=== PATIENT | male | born 1960 | race Caucasian/White ===

== ENCOUNTER 2020-11-29 22:09 | Emergency (ER) | payer OTHER, SELFPAY ==
--- NOTE | ~2020-11-29 | XR_ITS ---
EXAMINATION: XR chest 1V portable DATE: 11/29/2020 22:39 INDICATION: Shortness of breath and cough TECHNIQUE: frontal view of the chest was obtained. COMPARISON: None FINDINGS: Increased lucency, architectural distortion and curvilinear opacities at the bilateral apices suggest francis of bullous emphysema. Diffuse increased interstitial pattern in the bilateral mid and lower lung zones with some peripheral thin linear Marcy B lines consistent with mild pulmonary edema. No pleura l effusion or pneumothorax. Borderline heart size accounting for AP technique. IMPRESSION: 1. Borderline heart size with mild pulmonary edema. 2. Suggestion of biapical bullous emphysema. Reviewed, dictated and finalized at location A.
--- NOTE | 2020-11-29 22:10 | ECG_ITS ---
Measurements Intervals [place] Rate: 110 P: [place]: 0 QRS: 105 QRSD: 89 T: -60 QT: 325 QTc: 440 Interpretive Statements ATRIAL FIBRILLATION WITH RAPID VENTRICULAR RESPONSE RIGHT AXIS DEVIATION DELAYED PRECORDIAL R/S TRANSITION VOLTAGE CRITERIA FOR LVH ST-T WAVE ABNORMALITY IN LATERAL LEADS- CONSIDER ISCHEMIA BASELINE ARTIFACT- I, III ABNORMAL ECG Electronically Signed On 11-30-2020 9:37:33 CDT by David Pederson D.O.
[2020-11-29 22:11] VITALS: BP 140/103; PULSE 123; RESP 20; TEMP 36.5; O2SAT 98
[2020-11-29 22:37] VITALS: PULSE 93; RESP 29; O2SAT 100
[2020-11-29 22:38] VITALS: PULSE 104; PULSE 108; RESP 25; O2SAT 99
[2020-11-29 22:38] LABS: Basophils Percent Auto 0.3 % (0.2-1.2); Eosinophils Absolute Auto 0.6 K/mm3 (0-0.3); Hemoglobin 14.2 g/dL (14.0-18.0); Immature Granulocyte Absolute 0.02 K/mm3 (0.00-0.031); Immature Granulocyte Percent A 0.2 % (0-0.5); Lymphocytes Absolute Auto 3.23 K/mm3 (0.9-3.2); Lymphocytes Percent Auto 32.7 % (18.3-44.2); Mean Corpuscular HGB Conc 32.3 g/dl (32-36); Mean Corpuscular Hemoglobin 25.7 pg (26-34); Mean Corpuscular Volume 79.7 fl (80-100); Mean Platelet Volume 10.6 fl (7.4-10.4); Monocytes Percent Auto 9.8 % (2.6-8.5); Neutrophils Absolute Auto 5.1 K/mm3 (1.3-6.7); Platelet Count Result 326 k/mm3 (150-375); Red Blood Count 5.52 M/mm3 (4.6-6.20); Red Cell Distribution Width 16.2 % (11.5-14.5); White Blood Count 9.9 K/mm3 (4.5-10.0)
[2020-11-29 22:45] VITALS: PULSE 100; RESP 31; O2SAT 97
[2020-11-29 22:50] LABS: Anion Gap 10 mmol/L (8-16); Blood Urea Nitrogen 17 mg/dL (9-20); Calcium 8.6 mg/dL (8.4-10.2); Carbon Dioxide 24 mmol/L (22-30); Chloride 106 mmol/L (98-107); Estimated Glomerular Filt Rate > 60; Glucose 108 mg/dL (65-110); Potassium 4.2 mmol/L (3.4-5.0); Sodium 140 mmol/L (137-145)
[2020-11-29 23:10] LABS: Alveolar/Arterial O2 Gradient 48.4 mmHg; Base Excess ABG -3.5 mEq/l (+/-2.0); Device ROOM AIR; Fractional Inspired Oxygen 21 %; HCO3 ABG 20.5 mEq/l (22.0-26.0); Methemoglobin ABG 0.4 %THb (0-1.5); Oxygen Content ABG 18.2 %vol (16.0-22.0); Oxygen Saturation ABG 91.5 % (95.0-100.0); Oxyhemoglobin 88.3 % THb (90.0-100.0); PO2 ABG 60.6 mmHg (80.0-100.0); PO2 FiO2 Ratio Arterial Blood 2.89 %; Reduced Hemoglobin 9.3 %THb (0-5.0); Site Drawn RIGHT BRACHIAL; Total Hemoglobin 14.7 g/dL (12.0-18.0); pH ABG 7.398 (7.350-7.450)
[2020-11-29 23:17] VITALS: PULSE 109; RESP 33; O2SAT 100
--- NOTE | 2020-11-29 23:20 | ED.SOB ---
HPI - SOB/Dyspnea General Chief Complaint: Shortness of Breath/Dyspnea Stated Complaint: SOB, drowsy Time Seen by Provider: 11/29/20 22:34 History of Present Illness HPI Narrative: Patient is a 60-year-old male who presents ER for reports of shortness of breath. Reports symptoms are worse with laying down at night. Has history of heart failure and had at 1 point more no LifeVest due to V. fib and low ejection fraction. That was over a year ago and he no longer has to wear. Reports compliance with home medications although he does not know what he actually takes. If the member has brought him to the ER due to his reported shortness of breath and the fact that he sleeps for 13 days at a time and seems like energy. Patient is awake alert and oriented x3 reports she is chronically fatigued. He reports he has multiple doctors appointments scheduled for this week and may actually have to have a surgery. Unfortunately he does not know what the doctor appointments are for, where there act, or what surgery he may need to have. Related Data Home Medications Medication Instructions Recorded Confirmed cholecalciferol (vitamin D3) 11/29/20 duloxetine mg PO 11/29/20 furosemide 11/29/20 methimazole 11/29/20 Allergies Allergy/AdvReac Type Severity Reaction Status Date / Time No Known Allergies Allergy Verified 11/29/20 23:22 Review of Systems Review of Systems: All systems reviewed & are unremarkable except as noted in HPI and below Constitutional: Constitutional: Denies chills, Reports fatigue and Denies fever(s) ENT: Denies nasal congestion and Denies sore throat Cardiovascular: Cardiovascular: Denies chest pain, Denies rapid heart rate and Denies radiating jaw, neck or arm pain Respiratory: Respiratory: Denies cough and Reports dyspnea Comments: Orthopnea Gastrointestinal: Gastrointestinal: Denies abdominal pain, Denies diarrhea, Denies nausea and Denies vomiting Musculoskeletal: Musculoskeletal: Denies arthralgias and Denies joint swelling Neurologic: Denies syncope, Denies headache(s), Denies focal weakness and Denies numbness PMF Past Medical History Medical History (Updated 11/30/20 @ 00:42 by Jagdish Johnson MD) Atrial fibrillation CHF (congestive heart failure) Hyperthyroidism Family History Family History (Updated 10/31/13 @ 07:13 by DOCTOR UNKNOWN) Sibling Family history of thyroid disease Family history of obesity Mother Family history of chronic obstructive pulmonary disease Social History Social History Smoking status: Heavy tobacco smoker Alcohol intake: current Exam Narrative: GENERAL: Well-appearing, well-nourished, and in no acute distress. HEAD: Normocephalic, atraumatic. EYES: PERRL and EOMI. ENT: Mucous membranes moist. CHEST: Mild tachypnea with rales bilaterally. HEART: Tachycardic with an irregular regular rate and rhythm. Normal peripheral pulses. ABDOMEN: Soft, nontender, nondistended. EXTREMITIES: Normal range of motion. No edema. SKIN: Warm, dry, no rash. NEURO: Alert and oriented x3. PSYCH: Normal mood and affect. Course Course Emergency Course: I have informed the patient and family of testing results and requested that he stay in the hospital for medical optimization of his CHF and his A. fib. Heart rate controlled after IV diltiazem. Has been given some Lasix. I discussed his outlet side med list from [facility] and does not seem that she is taking his Coreg or Lasix nor is he on a blood thinner. Patient is unsure if they have been filled or not as his significant other is one who fills his medications. He does not wish to stay in the hospital despite the risk of respiratory failure and . I have given him multiple opportunities stay in the hospital and he is declined and is chosen to leave AGAINST MEDICAL ADVICE. Vital Signs Vital signs: Vital Signs Temperature 97.7 F 11/29/20 22:11 Pulse Rate 123 H 11/29/20 22:11 Respiratory Rate 20
[2020-11-29 23:31] VITALS: BP 140/110; PULSE 123; RESP 32; O2SAT 96
--- NOTE | 2020-11-29 23:40 | PC.NURSE ---
Pt here c granddaughter, who reports that pt will sleep for 12 days at a time. pt admits to regular use of methamphetamine, up to weekly, and will stay up for 2 days at a time before long periods of sleep. pt lives with daughter, who also uses meth. pt also c/o shortness of breath, but resps appear nonlabored at present on RA. pt also unable to name home meds and cannot recall names from pharmacy list. of note, pt has multiple meds that he has not picked up in at least 2 months - he reports his daughter gets his meds from [facility] and sometimes they don't have them ready and they keep changing it .
[2020-11-30 00:01] LABS: NT Pro B Type Natriuretic Pept 8340 pg/mL (5-100)
[2020-11-30 00:05] LABS: INR 1.4; Prothrombin Time 17.2 Seconds (11.1-14.7)
[2020-11-30 00:06] LABS: Partial Thromboplastin Time 33.9 SECONDS (22.3-36.8)
[2020-11-30 00:20] LABS: Amphetamine Screen Urine Positive (Negative); Barbiturate Screen Urine Negative (Negative); Benzodiazepines Screen Urine Negative (Negative); Cannabinoid Screen Urine Negative (Negative); Cocaine Screen Urine Negative (Negative); Methadone Screen Urine Negative (Negative); Opiate Screen Urine Negative (Negative); Phencyclidine Screen Urine Negative (Negative)
[2020-11-30 00:21] LABS: Add Urine Microscopic? NO; Appearance Urine Clear (Clear); Bilirubin Urine Negative (Negative); Blood Urine Negative (Negative); Color Urine Yellow (Yellow); Glucose Urine UA Negative (Negative); Ketones Urine Negative (Negative); Leukocyte Esterase Ur Negative LEU/UL (Negative); Nitrate Urine Negative (Negative); Protein Urine Negative (Negative); Specific Grav Ur 1.017 (1.001-1.035); Urobilinogen Urine Negative mg/dL (<2.0)
[2020-11-30 00:25] LABS: Thyroid Stimulating Hormone Reflex < 0.015 uIU/mL (0.465-4.68)
--- NOTE | 2020-11-30 01:02 | PC.NURSE ---
ED MD in room talking to pt and granddaughter about meds that pt should be taking but isn't, based on pharmacy refill hx provided. pt becomes upset and requests to leave. verbalized understanding that risks of leaving AMA include , disability and worsening of current health problems. Pt verbalized understanding. This RN also educated pt on dangers of smoking meth and effects on his heart. further reinforcement needed. IV removed. Escorted to wr in [place] by family.
[2020-11-30 01:16] LABS: Free T4 Free Thyroxine Reflex 1.95 ng/dL (0.78-2.19)
[2020-11-30 03:19] LABS: Total Triiodothyronine (T3) 1.83 NG/ML (0.97-1.69)
== END 2020-11-30 01:07 | disposition left against medical advice (07) ==
PROVIDERS: Emergency Provider Emergency Medicine; PCP Physician Assistant
DX: I50.9 Heart failure, unspecified (principal); I48.0 Paroxysmal atrial fibrillation; E05.90 Thyrotoxicosis, unspecified without thyrotoxic crisis or storm; Z72.0 Tobacco use
CPT/HCPCS: 36415; 36600; 71045; 80048; 80307; 81003; 82375; 82805; 83050; 83880; 84439; 84443; 84480; 85025; 85610; 85730; 93005; 99284

== ENCOUNTER 2021-08-05 18:52 | Emergency (ER) | payer OTHER, SELFPAY ==
[2021-08-05] VITALS (27 sets, daily range): BP systolic 120–146; BP diastolic 81–114; PULSE 73–106; RESP 0–33; TEMP 36.5; O2SAT 91–100
--- NOTE | ~2021-08-05 | XR_ITS ---
EXAMINATION: XR chest 2V DATE: 08/05/2021 21:09 INDICATION: Shortness of breath TECHNIQUE: AP and lateral views of the chest are obtained. COMPARISON: 11/29/2020 FINDINGS: The lungs are free of acute opacities. There are small pleural effusions. Cardiomegaly is n oted. There is no pneumothorax. There is mild thoracic spondylosis. IMPRESSION: 1. Small pleural effusions. Reviewed, dictated and finalized at location F. IMPRESSION: 1. Small pleural effusions.
--- NOTE | ~2021-08-05 | CT_ITS ---
EXAMINATION: CT abdomen pelvis wo con DATE: 08/05/2021 19:45 INDICATION: Right upper quadrant pain TECHNIQUE: Computed tomography (CT) of the abdomen and pelvis was performed without intravenous contr ast. The dose-length product (DLP) was 222.35 mGy-cm. Automated exposure control and iterative recons truction technique were employed. COMPARISON: None FINDINGS: Cardiomegaly is noted. There is interlobular septal thickening in the lung bases. There are small pleural effusions. The liver, spleen, pancreas, gallbladder, and adrenal glands are normal. Th e kidneys are unremarkable. There is calcified atherosclerosis of the aorta and many of the other art eries. No pathologically enlarged abdominal or pelvic lymph nodes are identified. There is no free in traperitoneal gas or evidence of bowel obstruction. There is a small volume of pelvic ascites. Coloni c diverticulosis is present without evidence of diverticulitis. There is mild lumbar spondylosis. IMPRESSION: 1. No CT correlate for the patient's symptoms. 2. Small pleural effusions. 3. Cardiomegaly with mild pulmonary edema. Reviewed, dictated and finalized at location F.
[2021-08-05 19:25] LABS: Basophils Percent Auto 0.5 % (0.2-1.2); Eosinophils Absolute Auto 0.3 K/mm3 (0-0.3); Eosinophils Percent Auto 2.9 % (0-4.4); Hematocrit 45.5 % (42.0-52.0); Hemoglobin 14.3 g/dL (14.0-18.0); Immature Granulocyte Absolute 0.02 K/mm3 (0.00-0.031); Immature Granulocyte Percent A 0.2 % (0-0.5); Lymphocytes Absolute Auto 2.64 K/mm3 (0.9-3.2); Lymphocytes Percent Auto 29.8 % (18.3-44.2); Mean Corpuscular HGB Conc 31.4 g/dl (32-36); Mean Corpuscular Hemoglobin 25.9 pg (26-34); Mean Corpuscular Volume 82.3 fl (80-100); Mean Platelet Volume 11.8 fl (7.4-10.4); Monocytes Absolute Auto 0.7 K/mm3 (0.1-0.6); Monocytes Percent Auto 7.3 % (2.6-8.5); Neutrophils Absolute Auto 5.2 K/mm3 (1.3-6.7); Neutrophils Percent Auto 59.3 % (45.5-73.1); Platelet Count Result 301 k/mm3 (150-375); Red Blood Count 5.53 M/mm3 (4.6-6.20); Red Cell Distribution Width 15.6 % (11.5-14.5); White Blood Count 8.9 K/mm3 (4.5-10.0)
[2021-08-05] MEDS: MORPHINE SULFATE (*CRX) 4 MG/ML INJ IV PUSH (19:25)
[2021-08-05 19:34] LABS: Alanine Aminotransferase 14 U/L (6-50); Albumin Level 3.6 g/dL (3.5-5.1); Alkaline Phosphatase 120 U/L (38-126); Anion Gap 6 mmol/L (8-16); Aspartate Amino Transferase 23 U/L (17-59); Blood Urea Nitrogen 15 mg/dL (9-20); Calcium 8.6 mg/dL (8.4-10.2); Carbon Dioxide 26 mmol/L (22-30); Chloride 104 mmol/L (98-107); Estimated CRCL calculation 54 ml/min; Estimated Glomerular Filt Rate > 60; Glucose 110 mg/dL (65-110); Lipase 29 U/L (23-300); Potassium 3.7 mmol/L (3.4-5.0); Sodium 136 mmol/L (137-145)
--- NOTE | 2021-08-05 20:23 | ED.GENADULT ---
HPI - General Adult General Chief complaint: Abdominal Pain Stated complaint: ABD PAIN Time Seen by Provider: 08/05/21 19:08 History of Present Illness HPI narrative: Patient is a 61-year-old male who presents ER with right-sided flank pain and abdominal pain. Sudden onset prior to arrival. Get some nausea makes him feel like he needs to use the restroom. He has had no urinary frequency urgency or dysuria. No diarrhea. Denies fevers or chills or sweats. No chest pain or chest pressure. He reports he had a little bit of dyspnea last night but has no dyspnea today or at this time. No runny nose or sore throat or productive cough. He is found no aggravating or alleviating factors for his discomfort. It was not associated with eating. Related Data Home Medications Medication Instructions Recorded Confirmed carvedilol 12.5 mg tablet 12.5 mg PO BID 08/05/21 08/05/21 donepezil 10 mg tablet 10 mg PO HS 08/05/21 08/05/21 furosemide 40 mg tablet 40 mg PO DAILY 08/05/21 08/05/21 losartan 50 mg tablet 50 mg PO DAILY 08/05/21 08/05/21 methimazole 5 mg tablet 5 mg PO BID 08/05/21 08/05/21 mirtazapine 15 mg tablet 15 mg PO HS 08/05/21 08/05/21 rivaroxaban 20 mg tablet (Xarelto) 20 mg PO DAILY 08/05/21 08/05/21 Allergies Allergy/AdvReac Type Severity Reaction Status Date / Time No Known Allergies Allergy Verified 11/29/20 23:22 Review of Systems Review of Systems: All systems reviewed & are unremarkable except as noted in HPI and below Constitutional: Constitutional: Denies chills, Denies fatigue and Denies fever(s) ENT: Denies nasal congestion and Denies sore throat Cardiovascular: Cardiovascular: Denies chest pain, Denies rapid heart rate and Denies radiating jaw, neck or arm pain Respiratory: Respiratory: Denies chest congestion, Denies cough and Reports dyspnea Gastrointestinal: Gastrointestinal: Reports abdominal pain, Denies bloating, Denies constipation, Reports nausea and Denies vomiting Genitourinary: Genitourinary: Denies hematuria, Denies dysuria and Denies urinary frequency [facility] Past Medical History Medical History (Updated 08/05/21 @ 22:16 by Jagdish Johnson MD) Atrial fibrillation CHF (congestive heart failure) Hyperthyroidism Surgical History Surgical History (Updated 08/05/21 @ 20:26 by Jagdish Johnson MD) No pertinent past surgical history Family History Family History (Updated 10/31/13 @ 07:13 by DOCTOR UNKNOWN) Sibling Family history of thyroid disease Family history of obesity Mother Family history of chronic obstructive pulmonary disease Social History Social History Smoking status: Heavy tobacco smoker Alcohol intake: current Exam Narrative: GENERAL: Uncomfortable-appearing, well-nourished, and in no acute distress. HEAD: Normocephalic, atraumatic. EYES: PERRL and EOMI. ENT: Mucous membranes moist. CHEST: Clear to auscultation. No respiratory distress. HEART: Regular rate and rhythm. Normal peripheral pulses. ABDOMEN: Soft, mild RUQ tenderness, nondistended. BACK: Tenderness right low back paraspinal region around L3-L4. No CVA tenderness. No midline tenderness of the thoracic or lumbar spine. No palpable spasm. EXTREMITIES: Normal range of motion. No edema. SKIN: Warm, dry, no rash. NEURO: Alert and oriented x3. PSYCH: Normal mood and affect. Course Course Emergency Course: Patient resting comfortably. Informed results. No abnormal lung sounds no pulmonary edema on chest x-ray. BNP elevated. Patient does have some mild dementia though he is oriented. He reports his daughter has been sick and has not been filling his medication. Patient has his most recent bottle of Lasix with him. It was filled on 07/22/2021, it still has all 30 tablets in it. Additionally he has a bottle from 06/22/2021 that still has 10 tablets in it. Patient was given 1 dose of medication here. Discharge home. Recommend follow-up with PCP. Daughter contacted by nurse and i
[2021-08-05 20:32] LABS: NT Pro B Type Natriuretic Pept 14400 pg/mL (5-100)
[2021-08-05 21:05] LABS: Appearance Urine Clear (Clear); Bilirubin Urine Negative (Negative); Color Urine Yellow (Yellow); Glucose Urine UA Trace mg/dL (Negative); Ketones Urine Negative (Negative); Leukocyte Esterase Ur Negative LEU/UL (Negative); Nitrate Urine Negative (Negative); Protein Urine Negative (Negative); Specific Grav Ur 1.015 (1.001-1.035); Urobilinogen Urine 0.2 mg/dL (<2.0)
--- NOTE | 2021-08-05 21:06 | PC.NURSE ---
, Munira Daughter updated. Wants a call back when more information is available.
[2021-08-05 21:09] LABS: Bacteria Urine Trace /hpf; Mucus Urine Rare /lpf; RBC Urine 0-2 /hpf (0-2); Squamous Epithelial Cell Urine Rare /hpf (Few); WBC Urine 0-3 /hpf
[2021-08-05 21:10] LABS: Add Urine Microscopic? YES; Blood Urine Trace-Intact (Negative)
--- NOTE | 2021-08-05 22:11 | PC.NURSE ---
PT took home dose of furosemide 40 mg po at order of CARYL Johnson.
== END 2021-08-05 22:57 | disposition home or self-care (01) ==
PROVIDERS: Emergency Medicine; Emergency Provider Emergency Medicine; PCP Physician Assistant
DX: I50.9 Heart failure, unspecified (principal); M54.50 Low back pain, unspecified; I48.91 Unspecified atrial fibrillation; E05.90 Thyrotoxicosis, unspecified without thyrotoxic crisis or storm; Z79.01 Long term (current) use of anticoagulants; F17.200 Nicotine dependence, unspecified, uncomplicated; I51.7 Cardiomegaly
CPT/HCPCS: 36415; 71046; 74176; 80053; 81001; 83690; 83880; 85025; 96374; 99284; J2270

== ENCOUNTER 2022-05-25 01:01 | Emergency (ER) | payer MEDICARE, MEDICAID, SELFPAY ==
[2022-05-25] VITALS (32 sets, daily range): BP systolic 132–178; BP diastolic 71–122; PULSE 81–107; RESP 12–22; TEMP 35.6; O2SAT 84–100
--- NOTE | ~2022-05-25 | CT_ITS ---
Clinical Indication: Shortness of breath, abdominal pain CT Scan of the Chest, Abdomen, and Pelvis with Contrast: Technique: Contiguous sections were acquired throughout the chest, abdomen, and pelvis after intraven ous administration of 100 cc of Omnipaque 350. Dose reduction technique was used on this scan by uti lizing automated exposure control and iterative reconstruction technique. The dose-length product (DL P) was 716.36 mGy-cm. COMPARISON: 08/05/2021 Findings: There is no evidence of any significant mediastinal, hilar or axillary lymphadenopathy. No aortic ane urysm or dissection. No large central pulmonary embolus seen. Coronary artery calcifications are pres ent. There is no evidence of pleural or pericardial effusion. There is a 5 mm pulmonary nodule along the right major fissure (axial image 78). There is paraseptal emphysematous change at the lung apices/upper lobes. The liver, spleen, gallbladder, and adrenal glands are within normal limits. There is an 8 mm probabl e cystic lesion at the uncinate process of the pancreas. There are probable scattered areas of renal cortical scarring bilaterally, right worse than left. There are atherosclerotic calcifications of the aorta. Celiac axis, SMA, and BRANDON are patent. There is atherosclerotic change of the mid SMA, with ap proximately 50% stenosis. No lymphadenopathy. There is couple mildly distended small bowel loops in the left upper quadrant, nonspecific. No bowel wall thickening evident. No abscess or free air. Urinary bladder is unremarkable. Prostate gland minimally enlarged. Impression: No evidence for acute mesenteric ischemia. Atherosclerotic change of the mid SMA with approximately 5 0% stenosis. Several mildly distended small bowel loops in left upper quadrant, nonspecific. Correlate for focal i leus. Mild emphysematous change of the upper lobes. 8 mm probable cystic lesion at the uncinate process of the pancreas. 5 mm pulmonary nodule along right major fissure. According to Fleischner Society criteria, for a low- risk patient, no further follow-up required. For a high-risk patient, consider 12 month follow-up CT. Reviewed, dictated and finalized at [facility]. Impression: No evidence for acute mesenteric ischemia. Atherosclerotic change of the mid SM A with approximately 50% stenosis. Several mildly distended small bowel loops in left upper quadrant, nonspecific. Correlate for focal ileus. Mild emphysematous change of the upper lobes. 8 mm probable cystic lesion at the uncinate process of the pancreas. 5 mm pulmonary nodule along right major fissure. According to Fleischner Societ y criteria, for a low-risk patient, no further follow-up required. For a high-r isk patient, consider 12 month follow-up CT.
--- NOTE | 2022-05-25 01:10 | ECG_ITS ---
Measurements Intervals [place] Rate: 78 P: [place]: 0 QRS: 79 QRSD: 94 T: 104 QT: 408 QTc: 466 Interpretive Statements ATRIAL FIBRILLATION LEFT VENTRICULAR HYPERTROPHY WITH ST-T CHANGE BORDERLINE T WAVE ABNORMALITY- HIGH LATERAL LEADS ABNORMAL ECG COMPARED TO ECG 11/29/2020 22:16:07 HEART RATE HAS DECREASED Electronically Signed On 05-25-2022 6:41:16 CDT by David Pederson D.O.
--- NOTE | 2022-05-25 01:17 | ED.ABDPAIN ---
HPI - Abdominal Pain General Chief Complaint: Abdominal Pain <ILANA Mckeon Last Filed: 05/25/22 03:46> Stated Complaint: ABD PAIN AND BILATERAL ANKLE PAIN <ILANA Mckeon Last Filed: 05/25/22 03:46> Time Seen by Provider: 05/25/22 01:10 <ILANA Mckeon Last Filed: 05/25/22 03:46> Source: patient <ILANA Mckeon Last Filed: 05/25/22 03:46> Mode of arrival: EMS <ILANA Mckeon Last Filed: 05/25/22 03:46> History of Present Illness HPI narrative: This is a 62-year-old male with PMH of A-fib, CHF, hyperthyroidism who presents to the ED via EMS with chief complaint of abdominal pain onset about 30 minutes prior to arrival. Patient states that the pain started just after he ate. He rates it a 10 out of 10. Patient reports pain is in the epigastrium and does not radiate anywhere else. States he has had pain like this in the past but it was around 30 years ago. He does endorse some shortness of breath. Denies cough. Denies fevers, chills, chest pain, nausea, vomiting, diarrhea. Per EMS he received 60 mcg of fentanyl. <ILANA Mckeon Last Filed: 05/25/22 03:46> Related Data Home Medications: Home Medications Medication Instructions Recorded Confirmed carvedilol 12.5 mg tablet 12.5 mg PO BID 08/05/21 08/05/21 donepezil 10 mg tablet 10 mg PO HS 08/05/21 08/05/21 furosemide 40 mg tablet 40 mg PO DAILY 08/05/21 08/05/21 losartan 50 mg tablet 50 mg PO DAILY 08/05/21 08/05/21 methimazole 5 mg tablet 5 mg PO BID 08/05/21 08/05/21 mirtazapine 15 mg tablet 15 mg PO HS 08/05/21 08/05/21 rivaroxaban 20 mg tablet (Xarelto) 20 mg PO DAILY 08/05/21 08/05/21 <ILANA Mckeon Last Filed: 05/25/22 03:46> Allergies/Adverse Reactions: Allergies Allergy/AdvReac Type Severity Reaction Status Date / Time No Known Allergies Allergy Verified 11/29/20 23:22 <Saroj Mc PA-C - Last Filed: 05/25/22 03:46> Review of Systems Review of Systems: CONSTITUTIONAL: Denies fever, chills, or sweats. EYES: Denies visual changes, redness, or discharge. ENT: Denies rhinorrhea, congestion, sore throat, or otalgia. CARDIOVASCULAR: Denies chest pain, palpitations, or edema. RESPIRATORY: Denies cough or dyspnea. GASTROINTESTINAL: Endorses abdominal pain, nausea, vomiting. denies diarrhea. GENITOURINARY: Denies dysuria or hematuria. SKIN: Denies rash or itching. MUSCULOSKELETAL: Denies back pain, joint pain, or myalgia. NEUROLOGIC: Denies headache, numbness, dizziness, or weakness. PSYCHIATRIC: Denies anxiety or depression. <Saroj Mc PA-C - Last Filed: 05/25/22 03:46> PMFSH Past Medical History Medical History: Medical History (Updated 05/25/22 @ 04:54 by Jone Vance MD) Atrial fibrillation CHF (congestive heart failure) Hyperthyroidism <Saroj Mc PA-C - Last Filed: 05/25/22 03:46> Surgical History Surgical History: Surgical History (Updated 08/05/21 @ 20:26 by Jagdish Johnson MD) No pertinent past surgical history <Saroj Mc PA-C - Last Filed: 05/25/22 03:46> Family History Family History: Family History (Updated 10/31/13 @ 07:13 by DOCTOR UNKNOWN) Sibling Family history of thyroid disease Family history of obesity Mother Family history of chronic obstructive pulmonary disease <Saroj Mc PA-C - Last Filed: 05/25/22 03:46> Social History Social History: Social History Smoking status: Heavy tobacco smoker Alcohol intake: current <Saroj Mc PA-C - Last Filed: 05/25/22 03:46> Exam Narrative: GENERAL: Well-appearing, well-nourished, and in no acute distress. HEAD: Normocephalic, atraumatic. EYES: PERRLA and EOMI. ENT: Nares clear, no rhinorrhea or epistaxis. Mucous membranes moist. Oropharynx without tonsillar hypertrophy exudate or other lesions. NECK: Supple. No adenopathy or masses. CHEST: No respiratory distress. Clear to auscultation. No wheezes rales or
[2022-05-25] MEDS: MORPHINE SULFATE (*CRX) 4 MG/ML INJ IV PUSH (01:27)
[2022-05-25] MEDS: ONDANSETRON INJ 4 MG/2 ML VIAL IV PUSH (01:28)
[2022-05-25] MEDS: SODIUM CHLORIDE 0.9% IV 1,000 ML 999 ML IV CONT ×2 (01:29→04:05)
[2022-05-25 01:31] LABS: Basophils Absolute Auto 0.1 K/mm3 (0.0-0.1); Basophils Percent Auto 0.5 % (0.2-1.2); Eosinophils Absolute Auto 0.6 K/mm3 (0-0.3); Eosinophils Percent Auto 5.1 % (0-4.4); Hematocrit 51.1 % (42.0-52.0); Hemoglobin 16.7 g/dL (14.0-18.0); Immature Granulocyte Absolute 0.08 K/mm3 (0.00-0.031); Immature Granulocyte Percent A 0.7 % (0-0.5); Lymphocytes Absolute Auto 4.18 K/mm3 (0.9-3.2); Mean Corpuscular HGB Conc 32.7 g/dl (32-36); Mean Corpuscular Hemoglobin 25.6 pg (26-34); Mean Corpuscular Volume 78.3 fl (80-100); Mean Platelet Volume 10.8 fl (7.4-10.4); Monocytes Absolute Auto 1.2 K/mm3 (0.1-0.6); Monocytes Percent Auto 10.6 % (2.6-8.5); Neutrophils Absolute Auto 5.5 K/mm3 (1.3-6.7); Neutrophils Percent Auto 47.1 % (45.5-73.1); Platelet Count Result 343 k/mm3 (150-375); Red Blood Count 6.53 M/mm3 (4.6-6.20); Red Cell Distribution Width 15.8 % (11.5-14.5); White Blood Count 11.6 K/mm3 (4.5-10.0)
[2022-05-25] MEDS: HYDROmorphone HCL INJ (*CRX) 1 MG/ML SYR 0.5 MG IV PUSH (01:31)
[2022-05-25 01:41] LABS: INR 1.1
[2022-05-25 01:42] LABS: Partial Thromboplastin Time 28.4 SECONDS (22.3-36.8)
[2022-05-25 01:45] LABS: Alanine Aminotransferase 28 U/L (6-50); Albumin Level 4.5 g/dL (3.5-5.1); Alkaline Phosphatase 149 U/L (38-126); Anion Gap 11 mmol/L (8-16); Aspartate Amino Transferase 34 U/L (17-59); Bilirubin,Total 0.8 mg/dL (0.2-1.3); Blood Urea Nitrogen 27 mg/dL (9-20); Calcium 9.3 mg/dL (8.4-10.2); Carbon Dioxide 23 mmol/L (22-30); Chloride 101 mmol/L (98-107); Estimated CRCL calculation 47 ml/min; Estimated Glomerular Filt Rate > 60; Glucose 119 mg/dL (65-110); Lipase 119 U/L (23-300); Potassium 3.5 mmol/L (3.4-5.0); Sodium 135 mmol/L (137-145)
[2022-05-25 01:49] LABS: Lactic Acid Reflex 4.8 mmol/L (0.7-2.0)
[2022-05-25 01:57] LABS: Troponin I < 0.012 ng/mL (0.000-0.034)
[2022-05-25] MEDS: PIPERACILLN/TAZ 3.375GM/NS50ML 3.375 GM/50 ML BAG IVPB (02:53)
[2022-05-25 02:55] LABS: Appearance Urine Clear (Clear); Bilirubin Urine Negative (Negative); Blood Urine Negative (Negative); Color Urine Yellow (Yellow); Glucose Urine UA Negative (Negative); Ketones Urine Negative (Negative); Leukocyte Esterase Ur Negative LEU/UL (Negative); Nitrate Urine Negative (Negative); Protein Urine Negative (Negative); Urobilinogen Urine 0.2 mg/dL (<2.0)
[2022-05-25 03:10] LABS: Specific Grav Ur 1.053 (1.001-1.035)
[2022-05-25 03:13] LABS: Add Urine Microscopic? NO
[2022-05-25 03:37] LABS: NT Pro B Type Natriuretic Pept 2700 pg/mL (19.9-100)
[2022-05-25 04:29] LABS: Reflex Lactic Acid Yes or No Add Lactic
--- NOTE | 2022-05-25 05:03 | PC.NURSE ---
report called to nora phillip; enoch varela
[2022-05-25 05:13] LABS: Lactic Acid 1.8 mmol/L (0.7-2.0)
[2022-05-25 05:26] LABS: Influenza A QL RT-PCR Negative (Negative); Influenza B QL RT-PCR Negative (Negative); SARS-CoV-2 RNA PCR Negative
== END 2022-05-25 05:48 | disposition short-term general hospital (02) ==
PROVIDERS: Preventive Medicine Aerospace Medicine; Emergency Provider Physician Assistant; PCP Physician Assistant
DX: K55.9 Vascular disorder of intestine, unspecified (principal); I50.9 Heart failure, unspecified; R10.9 Unspecified abdominal pain; I48.91 Unspecified atrial fibrillation; Z20.822 Contact with and (suspected) exposure to COVID-19; E05.90 Thyrotoxicosis, unspecified without thyrotoxic crisis or storm
CPT/HCPCS: 36415; 71275; 74174; 80053; 81003; 82248; 83605; 83690; 83880; 84484; 85025; 85610; 85730; 87040; 87636; 93005; 96361; 96365; 96375; 99285; J1170; J2270; J2405; J2543; J7030; Q9967

== ENCOUNTER 2023-07-13 16:28 | Observation (INO) | payer MEDICARE, MEDICAID, SELFPAY ==
--- NOTE | ~2023-07-13 | US_ITS ---
EXAMINATION: US renal BI DATE: 07/14/2023 08:38 INDICATION: Acute kidney injury. TECHNIQUE: Multiple ultrasound grayscale images of the kidneys were obtained. COMPARISON: CT 05/25/2022 FINDINGS: The right kidney measures 9.9 x 5.5 x 4.7 cm. The left kidney measures 10.5 x 5.8 x 5.1 cm. There is cortical thinning of the kidneys. The kidneys demonstrate normal parenchymal echogenicity. There is a 9 mm hypoechoic mass of left kidney correlating with a cyst by CT. There is no hydronephrosis. The b ladder is normal. IMPRESSION: 1. Mild atrophy of the kidneys. No hydronephrosis. Reviewed, dictated and finalized at location A.
--- NOTE | ~2023-07-13 | XR_ITS ---
Portable chest x-ray Comparison: 08/05/2021 Clinical History: Acute renal insufficiency Findings: Lungs are clear, without focal consolidation or pleural effusion. Cardiomediastinal silho uette is stable. Bones and soft tissues are unremarkable. Impression: Clear lungs. Reviewed, dictated and finalized at location . Impression: Clear lungs.
[2023-07-13 16:42] VITALS: BP 100/68; PULSE 77; RESP 18; TEMP 36.2; O2SAT 98
--- NOTE | 2023-07-13 16:51 | PC.NURSE ---
ana lilia [phone] [facility]
--- NOTE | 2023-07-13 17:02 | ED.GENADULT ---
HPI - General Adult General Chief complaint: Nausea/Vomiting/Diarrhea <Vanita Veras, WEIGHBRIDGE OPERATOR - Last Filed: 07/13/23 17:09> Stated complaint: allergic reaction <Vanita Boggs July, WEIGHBRIDGE OPERATOR - Last Filed: 07/13/23 17:09> Time Seen by Provider: 07/13/23 17:02 <Vanita Boggs July, WEIGHBRIDGE OPERATOR - Last Filed: 07/13/23 17:09> Focused HPI: Hsueyin Kemp is a 63 y/o male who presents today with reports of having a belly ache for a week and not much of an appetite. He states he started to have nausea/vomiting that started today. Denies fever/chills Last BM was today and states it was diarrhea/ last normal was yesterday No previous abdominal surgeries No abdominal pain with palpation states it's more of a nausea feeling then ache. GENERAL: Well-appearing, well-nourished, and in no acute distress. HEAD: Normocephalic, atraumatic. CHEST: Clear to auscultation. ?No respiratory distress. HEART: Regular rate and rhythm.? NEURO: ?Alert and oriented x3. Patient screened in triage and initial orders placed.? ?Additional care and disposition to be based upon?diagnostic testing and treatment. <Vanita Boggs July, WEIGHBRIDGE OPERATOR - Last Filed: 07/13/23 17:09> Related Data Home medications: Home Medications Medication Instructions Recorded Confirmed carvedilol 12.5 mg tablet 12.5 mg PO BID 08/05/21 08/05/21 donepezil 10 mg tablet 10 mg PO HS 08/05/21 08/05/21 furosemide 40 mg tablet 40 mg PO DAILY 08/05/21 08/05/21 losartan 50 mg tablet 50 mg PO DAILY 08/05/21 08/05/21 methimazole 5 mg tablet 5 mg PO BID 08/05/21 08/05/21 mirtazapine 15 mg tablet 15 mg PO HS 08/05/21 08/05/21 rivaroxaban 20 mg tablet (Xarelto) 20 mg PO DAILY 08/05/21 08/05/21 <Vanita Veras, WEIGHBRIDGE OPERATOR - Last Filed: 07/13/23 17:09> Allergies/adverse reactions: Allergies Allergy/AdvReac Type Severity Reaction Status Date / Time No Known Allergies Allergy Verified 11/29/20 23:22 <Vanita Boggs July,N - Last Filed: 07/13/23 17:09> Review of Systems Review of Systems: All systems reviewed & are unremarkable except as noted in HPI and below <Ochoa Mills MD - Last Filed: 07/13/23 20:23> [facility] Past Medical History Medical History: Medical History Atrial fibrillation CHF (congestive heart failure) Hyperthyroidism <Vanita Boggs July,N - Last Filed: 07/13/23 17:09> Surgical History Surgical History: Surgical History No pertinent past surgical history <Vanita Boggs July, - Last Filed: 07/13/23 17:09> Family History Family History: Family History Sibling Family history of thyroid disease Family history of obesity Mother Family history of chronic obstructive pulmonary disease <Vanita Boggs July, - Last Filed: 07/13/23 17:09> Social History Social History: Social History Smoking status: Heavy tobacco smoker Alcohol intake: current <Vanita Boggs July, - Last Filed: 07/13/23 17:09> Exam Narrative: Constitutional: Generally well appearing, no acute distress Head: Atraumatic, no deformities. Eyes: Pupils equal, round, and reactive to light. Neck: Supple, no tracheal deviation, no JVD. ENMT: Mucous membranes moist Cardiovascular: S1, S2 auscultated. No murmurs, rubs, or gallops. No S3/S4. Normal Distal pulses. No peripheral edema. Respiratory: Lung sounds equal. No wheezes, rales, or rhonchi. Gastrointestinal: Abdomen was soft and non-tender. Non-distended. No rebound or guarding. Genitourinary: Deferred Musculoskeletal: Normal muscle tone and bulk. No obvious deformities or tenderness over extremities. Skin: No rashes. Neurological: Strength 5/5 in extremities. Cranial nerves I-XII grossly intact. Distal sensation intact. Mental Status: Awake, alert and oriented x3. Follows commands <Ochoa Mills MD - Last File
[2023-07-13 17:28] LABS: Basophils Percent Auto 0.3 % (0.2-1.2); Eosinophils Absolute Auto 0.3 K/mm3 (0-0.3); Eosinophils Percent Auto 2.4 % (0-4.4); Hematocrit 50.3 % (42.0-52.0); Hemoglobin 16.7 g/dL (14.0-18.0); Immature Granulocyte Absolute 0.08 K/mm3 (0.00-0.031); Immature Granulocyte Percent A 0.6 % (0-0.5); Lymphocytes Absolute Auto 2.33 K/mm3 (0.9-3.2); Lymphocytes Percent Auto 16.8 % (18.3-44.2); Mean Corpuscular HGB Conc 33.2 g/dl (32-36); Mean Corpuscular Hemoglobin 27.1 pg (26-34); Mean Corpuscular Volume 81.7 fl (80-100); Mean Platelet Volume 11.6 fl (7.4-10.4); Monocytes Absolute Auto 1.2 K/mm3 (0.1-0.6); Monocytes Percent Auto 8.5 % (2.6-8.5); Neutrophils Absolute Auto 9.9 K/mm3 (1.3-6.7); Neutrophils Percent Auto 71.4 % (45.5-73.1); Platelet Count Result 289 k/mm3 (150-375); Red Blood Count 6.16 M/mm3 (4.6-6.20); Red Cell Distribution Width 15.4 % (11.5-14.5); White Blood Count 13.9 K/mm3 (4.5-10.0)
[2023-07-13] MEDS: ONDANSETRON INJ 4 MG/2 ML VIAL IV PUSH (17:29)
[2023-07-13] MEDS: FAMOTIDINE 20 MG/2 ML VIAL IV PUSH (17:30)
[2023-07-13 17:33] LABS: Lactic Acid Reflex 1.1 mmol/L (0.7-2.0)
[2023-07-13 17:36] LABS: Alanine Aminotransferase 38 U/L (6-50); Albumin Level 4.8 g/dL (3.5-5.1); Alkaline Phosphatase 142 U/L (38-126); Anion Gap 11 mmol/L (4-12); Aspartate Amino Transferase 33 U/L (17-59); Blood Urea Nitrogen 29 mg/dL (9-20); Calcium 9.8 mg/dL (8.4-10.2); Carbon Dioxide 19 mmol/L (22-30); Chloride 103 mmol/L (98-107); Estimated Glomerular Filt Rate 32; Glucose 124 mg/dL (65-110); Lipase 73 U/L (23-300); Potassium 4.5 mmol/L (3.4-5.0); Sodium 133 mmol/L (137-145)
--- NOTE | 2023-07-13 18:56 | PC.NURSE ---
Pt tells me he had a syncopal episode at home which prompted him to tell his daughter to call EMS.
--- NOTE | 2023-07-13 20:18 | PM.IMHP ---
H&P: HPI History of Present Illness Date/Time: 07/13/23 20:18 Chief Complaint: n/v/d Narrative: This is a 63-year-old male with past medical history significant for hypothyroidism, hypertension, atrial fibrillation, congestive heart failure, dementia. patient presents to the emergency room due to nausea, vomiting, diarrhea. denies any hematemesis, coffee-ground emesis, bright red blood per rectum or melena, patient has been his usual state of health prior to this, denies any fevers, rigors, chills. This has been ongoing for the last 3 days or so. In emergency room preliminary workup was significant for a creatinine 2.1. patient has been placed in observation for further evaluation management and treatment. Review of Systems Review of Systems: n/v/d Constitutional: Constitutional: Denies chills, Denies fever(s) and Denies night sweats Eyes: Eyes: Denies change in vision ENT: Denies dysphagia and Denies odynophagia Cardiovascular: Cardiovascular: Denies chest pain, Denies radiating jaw, neck or arm pain and Denies palpitations Respiratory: Respiratory: Denies cough Gastrointestinal: Gastrointestinal: Denies melena, Denies hematochezia, Denies coffee ground emesis, Reports diarrhea, Reports nausea and Reports vomiting Genitourinary: Genitourinary: Denies dysuria Musculoskeletal: Musculoskeletal: Denies myalgias Integumentary/Breasts: Skin/Breast: Denies rash Neurologic: Denies focal weakness and Denies Sensory deficit (Neuro) Psychiatric: Psychiatric: Reports no additional psychiatric complaints and Reports as per HPI Endocrine: Endocrine: Denies cold intolerance, Denies fatigue, Denies flushing, Denies heat intolerance, Denies polyphagia, Denies polydipsia, Denies polyuria and Denies palpitations Hematologic/Lymphatic: Hematologic/Lymphatic: Reports no additional hematologic/lymphatic complaints and Reports as per HPI Allergic/Immunologic: Allergic/Immunologic: Reports no additional allergic/immunologic complaints and Reports as per HPI PMFSH Past Medical History Medical History (Updated 07/14/23 @ 00:37 by Valentino Snider MD) Atrial fibrillation CHF (congestive heart failure) Hyperthyroidism Surgical History Surgical History No pertinent past surgical history Family History Family History Sibling Family history of thyroid disease Family history of obesity Mother Family history of chronic obstructive pulmonary disease Social History Social History Smoking packs per day: 0.5 Smoking cigarettes per day: 10.0 Years smoked: 40 Smoking pack-years: 20.00 Smoking status: Current every day smoker Tobacco type: cigarettes Alcohol intake: never Substance use: never Substance use type: does not use Do You Feel Safe in your Home?: Yes Lack of Transportation: No Lack of Food: Never True Current Housing: I Have Housing Concerned About Future Housing: No Difficulty Paying Gas/Electric Bills: No Difficulty Paying for Meds: No Currently Unemployed: No Education: Decline to Answer Difficulty w/ Childcare or Family Care: No Spiritual care concerns: No Meds Home Medications and Allergies Home Medications Medication Instructions Recorded Confirmed Type carvedilol 12.5 mg tablet 12.5 mg PO BID 08/05/21 07/14/23 History donepezil 10 mg tablet 10 mg PO HS 08/05/21 07/14/23 History furosemide 40 mg tablet 40 mg PO DAILY 08/05/21 07/14/23 History losartan 50 mg tablet 50 mg PO DAILY 08/05/21 07/14/23 History methimazole 5 mg tablet 5 mg PO BID 08/05/21 07/14/23 History mirtazapine 15 mg tablet 15 mg PO HS 08/05/21 07/14/23 History rivaroxaban 20 mg tablet (Xarelto) 20 mg PO DAILY 08/05/21 07/14/23 History Allergies Allergy/AdvReac Type Severity Reaction Status Date / Time sertraline AdvReac
[2023-07-13 20:22] VITALS: BP 125/59; PULSE 88; RESP 20; O2SAT 97
[2023-07-13] MEDS: SODIUM CHLORIDE 0.9% IV 1,000 ML 999 ML IV CONT (20:22)
[2023-07-13 21:03] LABS: Influenza A QL RT-PCR Negative (Negative); Influenza B QL RT-PCR Negative (Negative); RSV RNA, RT-PCR Negative (Negative); SARS-CoV-2 RNA PCR Negative (Negative)
[2023-07-13 21:14] LABS: Appearance Urine Cloudy (Clear); Bacteria Urine None Seen /hpf; Bilirubin Urine 1+ (Negative); Blood Urine Negative (Negative); Color Urine Dark Yellow (Yellow); Glucose Urine UA Negative (Negative); Hyaline Casts Urine Present /lpf; Ketones Urine Trace mg/dL (Negative); Leukocyte Esterase Ur Negative LEU/UL (Negative); Need Manual Microscopic Reviewed; Nitrate Urine Negative (Negative); Non Pathogenic Casts >20; Protein Urine 1+ mg/dL (Negative); RBC Urine 0-2 /hpf (0-2); Specific Grav Ur 1.021 (1.001-1.035); Squamous Epithelial Cell Urine Occasional /hpf (Few); WBC Urine 0-5 /hpf (0-3)
[2023-07-13 21:15] LABS: Add Urine Microscopic? YES
[2023-07-13 21:46] VITALS: BP 122/87; PULSE 74; RESP 18; O2SAT 97
[2023-07-13] MEDS: SODIUM CHLORIDE 0.9% IV 1,000 ML 125 ML IV CONT (21:47)
[2023-07-13 22:23] VITALS: BMI 22.1
[2023-07-13 22:51] VITALS: BP 160/88; PULSE 86; RESP 16; TEMP 36.4; O2SAT 98
[2023-07-13 23:00] VITALS: O2SAT 97
[2023-07-13 23:58] VITALS: BMI 22.1
[2023-07-13 23:58] LABS: Amphetamine Screen Urine Negative (Negative); Barbiturate Screen Urine Negative (Negative); Benzodiazepines Screen Urine Negative (Negative); Cannabinoid Screen Urine Negative (Negative); Cocaine Screen Urine Negative (Negative); Methadone Screen Urine Negative (Negative); Opiate Screen Urine Negative (Negative); Phencyclidine Screen Urine Negative (Negative)
--- NOTE | 2023-07-14 00:13 | ADMGEN ---
This patient, Huseyin Kemp, was admitted to 3 [facility] Surg Room 317-02. Patient/family oriented to hospital policies and general routines including ID bracelet, bed and alarms, visiting hours, pain management, procedures, bathroom and other care routines, personal items, smoking policy, room service/diet, and visiting hours. Information on how to activate the Rapid Response Team has been discussed. Patient/Family are encouraged to report perceived risks to care and to ask questions if they do not understand what they are told or what they should do.
[2023-07-14 05:49] VITALS: BP 128/71; PULSE 77; RESP 18; TEMP 36.4; O2SAT 98
[2023-07-14 06:06] LABS: Basophils Absolute Auto 0.1 K/mm3 (0.0-0.1); Basophils Percent Auto 0.7 % (0.2-1.2); Eosinophils Absolute Auto 0.4 K/mm3 (0-0.3); Eosinophils Percent Auto 4.4 % (0-4.4); Hematocrit 43.4 % (42.0-52.0); Hemoglobin 14.2 g/dL (14.0-18.0); Immature Granulocyte Absolute 0.05 K/mm3 (0.00-0.031); Immature Granulocyte Percent A 0.6 % (0-0.5); Lymphocytes Percent Auto 29.5 % (18.3-44.2); Mean Corpuscular HGB Conc 32.7 g/dl (32-36); Mean Corpuscular Hemoglobin 27.1 pg (26-34); Mean Corpuscular Volume 82.8 fl (80-100); Mean Platelet Volume 11.6 fl (7.4-10.4); Monocytes Absolute Auto 0.8 K/mm3 (0.1-0.6); Monocytes Percent Auto 9.2 % (2.6-8.5); Neutrophils Absolute Auto 4.9 K/mm3 (1.3-6.7); Neutrophils Percent Auto 55.6 % (45.5-73.1); Platelet Count Result 226 k/mm3 (150-375); Red Blood Count 5.24 M/mm3 (4.6-6.20); Red Cell Distribution Width 14.6 % (11.5-14.5); White Blood Count 8.8 K/mm3 (4.5-10.0)
[2023-07-14 06:20] LABS: Anion Gap 6 mmol/L (4-12); Blood Urea Nitrogen 22 mg/dL (9-20); Calcium 8.8 mg/dL (8.4-10.2); Carbon Dioxide 20 mmol/L (22-30); Chloride 110 mmol/L (98-107); Estimated CRCL calculation 44 ml/min; Estimated Glomerular Filt Rate 51; Glucose 84 mg/dL (65-110); Potassium 4.7 mmol/L (3.4-5.0); Sodium 136 mmol/L (137-145)
[2023-07-14] MEDS: SODIUM CHLORIDE 0.9% IV 1,000 ML 125 ML IV CONT (06:24)
--- NOTE | 2023-07-14 07:43 | PC.NURSE ---
Patient off of unit to US
[2023-07-14 14:00] VITALS: BP 100/59; PULSE 58; RESP 16; TEMP 36.3; O2SAT 98
--- NOTE | 2023-07-14 14:13 | PM.IMPN ---
Progress Note: A&P Assessment and Plan (1) Nausea vomiting and diarrhea: Code(s): R11.2 - Nausea with vomiting, unspecified; R19.7 - Diarrhea, unspecified Status: Acute Assessment and Plan: Patient is feeling much better now. Plan is to continue with IV hydration. Possible discharge in the morning. (2) JOSÉ ANTONIO (acute kidney injury): Code(s): N17.9 - Acute kidney failure, unspecified Status: Acute Assessment and Plan: likely pre renal azotemia receiving IV fluids renal ultrasound showed no hydronephrosis daily intake and output (3) Atrial fibrillation: Code(s): I48.91 - Unspecified atrial fibrillation Status: Acute Assessment and Plan: continue to monitor, restart home medications (4) Hypertension: Code(s): I10 - Essential (primary) hypertension Status: Acute Assessment and Plan: Stable current medications, will continue current treatment. Plan Plan is to continue with IV hydration monitor closely. Possible discharge in the morning. DVT prophylaxis Xarelto. Code status full. Subjective Date/time seen: 07/14/23 14:13 Interval history: Patient was seen during the rounds today. Patient is feeling much better. No nausea or vomiting. Diarrhea has decreased. Review of Systems Review of Systems: n/v/d Constitutional: Constitutional: Denies chills, Denies fatigue, Denies fever(s) and Denies night sweats Eyes: Eyes: Denies change in vision ENT: Denies dysphagia and Denies odynophagia Cardiovascular: Cardiovascular: Denies chest pain, Denies radiating jaw, neck or arm pain and Denies palpitations Respiratory: Respiratory: Denies cough Gastrointestinal: Gastrointestinal: Denies melena, Denies hematochezia, Denies coffee ground emesis, Denies dysphagia, Reports diarrhea, Reports nausea, Denies odynophagia and Reports vomiting Genitourinary: Genitourinary: Denies dysuria Musculoskeletal: Musculoskeletal: Denies myalgias Integumentary/Breasts: Skin/Breast: Denies rash Neurologic: Denies focal weakness and Denies Sensory deficit (Neuro) Psychiatric: Psychiatric: Reports no additional psychiatric complaints and Reports as per HPI Endocrine: Endocrine: Denies cold intolerance, Denies fatigue, Denies flushing, Denies heat intolerance, Denies polyphagia, Denies polydipsia, Denies polyuria and Denies palpitations Hematologic/Lymphatic: Hematologic/Lymphatic: Reports no additional hematologic/lymphatic complaints and Reports as per HPI Allergic/Immunologic: Allergic/Immunologic: Reports no additional allergic/immunologic complaints and Reports as per HPI Exam Narrative: lying in stretcher Const: General: comfortable, no acute distress, well developed, alert, awake and average body habitus Nutritional Appearance: average body habitus Orientation/consciousness: patient oriented x3 HENMT: Head: normal to inspection, normocephalic and atraumatic Ears: hearing grossly normal bilaterally Face/Nose/Sinus: normal facial exam Face and sinus: normal facial exam Eyes: General: appearance normal, both eyes and all related structures Pupils: Equal, round and reactive pupils present EOM: EOMs intact bilaterally Neck: Neck: full ROM, no lymphadenopathy and no JVD Thyroid: thyroid normal Lymphatic: no lymphadenopathy noted Resp: Effort & Inspection: normal respiratory effort and able to speak in complete sentences Auscultation: clear to auscultation bilaterally Cardio: Jugular venous distension: no JVD Rate: regular rate Rhythm: regular rhythm Heart sounds: S1 normal heart sound present and S2 normal heart sound present : General: Yes deferred Skin: Rashes: no rashes Wounds: no wounds Neuro: General: patient oriented x3 and CN's II-XI intact bilaterally Cranial nerves: Yes CN's II-XII intact bilaterally and Yes Equal, round and reactive pupils present Cognition (Neuro): normal cognition Speech: normal speech Gait exam (
[2023-07-14] MEDS: SODIUM CHLORIDE 0.9% IV 1,000 ML 75 ML IV CONT (14:35)
[2023-07-14] MEDS: methiMAzole 10 MG TAB 20 MG PO (17:12)
[2023-07-14 20:37] VITALS: PULSE 76
[2023-07-14] MEDS: carvediloL 12.5 MG TABLET PO (20:37)
[2023-07-14] MEDS: DONEPEZIL HCL 5 MG TABLET PO (20:37)
[2023-07-14] MEDS: MIRTAZAPINE 15 MG TABLET PO (20:37)
[2023-07-14 22:00] VITALS: BP 121/67; PULSE 68; RESP 16; TEMP 36.1; O2SAT 99
[2023-07-15] MEDS: SODIUM CHLORIDE 0.9% IV 1,000 ML 75 ML IV CONT (02:50)
[2023-07-15 06:00] VITALS: BP 144/81; PULSE 70; RESP 16; TEMP 36.4; O2SAT 99
[2023-07-15 06:39] LABS: Basophils Percent Auto 0.4 % (0.2-1.2); Eosinophils Absolute Auto 0.3 K/mm3 (0-0.3); Eosinophils Percent Auto 3.9 % (0-4.4); Hematocrit 43.5 % (42.0-52.0); Immature Granulocyte Absolute 0.04 K/mm3 (0.00-0.031); Immature Granulocyte Percent A 0.6 % (0-0.5); Lymphocytes Absolute Auto 2.22 K/mm3 (0.9-3.2); Lymphocytes Percent Auto 31.3 % (18.3-44.2); Mean Corpuscular HGB Conc 32.2 g/dl (32-36); Mean Corpuscular Hemoglobin 27.1 pg (26-34); Mean Corpuscular Volume 84.3 fl (80-100); Mean Platelet Volume 11.8 fl (7.4-10.4); Monocytes Absolute Auto 0.7 K/mm3 (0.1-0.6); Monocytes Percent Auto 10.2 % (2.6-8.5); Neutrophils Absolute Auto 3.8 K/mm3 (1.3-6.7); Neutrophils Percent Auto 53.6 % (45.5-73.1); Platelet Count Result 208 k/mm3 (150-375); Red Blood Count 5.16 M/mm3 (4.6-6.20); Red Cell Distribution Width 14.8 % (11.5-14.5); White Blood Count 7.1 K/mm3 (4.5-10.0)
[2023-07-15 06:51] LABS: Alanine Aminotransferase 21 U/L (6-50); Albumin Level 3.4 g/dL (3.5-5.1); Alkaline Phosphatase 101 U/L (38-126); Anion Gap 4 mmol/L (4-12); Aspartate Amino Transferase 20 U/L (17-59); Bilirubin,Total 0.8 mg/dL (0.2-1.3); Blood Urea Nitrogen 15 mg/dL (9-20); Calcium 8.4 mg/dL (8.4-10.2); Carbon Dioxide 23 mmol/L (22-30); Chloride 109 mmol/L (98-107); Estimated CRCL calculation 51 ml/min; Estimated Glomerular Filt Rate > 60; Glucose 119 mg/dL (65-110); Potassium 3.9 mmol/L (3.4-5.0); Sodium 136 mmol/L (137-145)
[2023-07-15 08:55] VITALS: PULSE 67
[2023-07-15] MEDS: methiMAzole 10 MG TAB 20 MG PO (08:55)
[2023-07-15] MEDS: LOSARTAN POTASSIUM 50 MG TABLET PO (08:55)
[2023-07-15] MEDS: carvediloL 12.5 MG TABLET PO (08:55)
[2023-07-15] MEDS: RIVAROXABAN 20 MG TABLET PO (08:55)
--- NOTE | 2023-07-15 09:48 | PM.IMPN ---
Progress Note: A&P Assessment and Plan (1) Nausea vomiting and diarrhea: Code(s): R11.2 - Nausea with vomiting, unspecified; R19.7 - Diarrhea, unspecified Status: Acute Assessment and Plan: Patient is feeling much better now. Plan is to continue with IV hydration. Possible discharge in the morning. (2) JOSÉ ANTONIO (acute kidney injury): Code(s): N17.9 - Acute kidney failure, unspecified Status: Acute Assessment and Plan: likely pre renal azotemia receiving IV fluids renal ultrasound showed no hydronephrosis daily intake and output (3) Atrial fibrillation: Code(s): I48.91 - Unspecified atrial fibrillation Status: Acute Assessment and Plan: continue to monitor, restart home medications (4) Hypertension: Code(s): I10 - Essential (primary) hypertension Status: Acute Assessment and Plan: Stable current medications, will continue current treatment. Plan Plan is to continue with IV hydration monitor closely. Possible discharge in the morning. DVT prophylaxis Xarelto. Code status full. Time Spent With Patient Time with patient: 15 - 25 minutes Subjective Date/time seen: 07/15/23 09:48 Interval history: H/o hypothyroidism, hypertension, atrial fibrillation, congestive heart failure, dementia admitted from ED on 07/12 for n/v/d. CR was elevated in ed-2.1- admitted for observation Patient was seen today Patient is feeling much better. No nausea or vomiting. Diarrhea has decreased. Cr this am-1.20. anticipated discharge Review of Systems Review of Systems: n/v/d Constitutional: Constitutional: Denies chills, Denies fatigue, Denies fever(s) and Denies night sweats Eyes: Eyes: Denies change in vision ENT: Denies dysphagia and Denies odynophagia Cardiovascular: Cardiovascular: Denies chest pain, Denies radiating jaw, neck or arm pain and Denies palpitations Respiratory: Respiratory: Denies cough Gastrointestinal: Gastrointestinal: Denies melena, Denies hematochezia, Denies coffee ground emesis, Denies dysphagia, Reports diarrhea, Reports nausea, Denies odynophagia and Reports vomiting Genitourinary: Genitourinary: Denies dysuria Musculoskeletal: Musculoskeletal: Denies myalgias Integumentary/Breasts: Skin/Breast: Denies rash Neurologic: Denies focal weakness and Denies Sensory deficit (Neuro) Psychiatric: Psychiatric: Reports no additional psychiatric complaints and Reports as per HPI Endocrine: Endocrine: Denies cold intolerance, Denies fatigue, Denies flushing, Denies heat intolerance, Denies polyphagia, Denies polydipsia, Denies polyuria and Denies palpitations Hematologic/Lymphatic: Hematologic/Lymphatic: Reports no additional hematologic/lymphatic complaints and Reports as per HPI Allergic/Immunologic: Allergic/Immunologic: Reports no additional allergic/immunologic complaints and Reports as per HPI Exam Narrative: lying in stretcher Const: General: comfortable, no acute distress, well developed, alert, awake and average body habitus Nutritional Appearance: average body habitus Orientation/consciousness: patient oriented x3 HENMT: Head: normal to inspection, normocephalic and atraumatic Ears: hearing grossly normal bilaterally Face/Nose/Sinus: normal facial exam Face and sinus: normal facial exam Eyes: General: appearance normal, both eyes and all related structures Pupils: Equal, round and reactive pupils present EOM: EOMs intact bilaterally Neck: Neck: full ROM, no lymphadenopathy and no JVD Thyroid: thyroid normal Lymphatic: no lymphadenopathy noted Resp: Effort & Inspection: normal respiratory effort and able to speak in complete sentences Auscultation: clear to auscultation bilaterally Cardio: Jugular venous distension: no JVD Rate: regular rate Rhythm: regular rhythm Heart sounds: S1 normal heart sound present and S2 normal heart sound present : General: Yes deferred Skin: Rashes: no rashes Wou
[2023-07-15 14:00] VITALS: BP 119/73; PULSE 62; RESP 16; TEMP 36.5; O2SAT 99
--- NOTE | 2023-07-15 14:37 | PM.DS ---
DS: Admitting Diagnosis Discharge Date 07/15/23 Admitting Diagnosis n/v/d DS: Discharge Diagnosis Discharge Diagnosis (1) Nausea vomiting and diarrhea: Code(s): R11.2 - Nausea with vomiting, unspecified; R19.7 - Diarrhea, unspecified Status: Acute Assessment and Plan: Patient is feeling much better now. Plan is to continue with IV hydration. Possible discharge in the morning. (2) JOSÉ ANTONIO (acute kidney injury): Code(s): N17.9 - Acute kidney failure, unspecified Status: Acute Assessment and Plan: likely pre renal azotemia receiving IV fluids renal ultrasound showed no hydronephrosis daily intake and output (3) Atrial fibrillation: Code(s): I48.91 - Unspecified atrial fibrillation Status: Acute Assessment and Plan: continue to monitor, restart home medications (4) Hypertension: Code(s): I10 - Essential (primary) hypertension Status: Acute Assessment and Plan: Stable current medications, will continue current treatment. Plan Plan is to continue with IV hydration monitor closely. Possible discharge in the morning. DVT prophylaxis Xarelto. Code status full. DS: Summary Hospital Course Hospital Course: Treated with IV fluid but and cr returned to normal Time spent discussing smoking cessation with patient: 3 to 10 minutes Status at Discharge Cognitive/behavioral status at discharge: alert, oriented, in no distress Functional status at discharge: independent ambulation Overall status at discharge: patient is back to baseline Time Spent with Patient Time attestation: Total time spent providing and/or coordinating discharge services: Time spent: Less than 30 minutes Exam Narrative: lying in stretcher Const: General: comfortable, no acute distress, well developed, alert, awake and average body habitus Nutritional Appearance: average body habitus Orientation/consciousness: patient oriented x3 HENMT: Head: normal to inspection, normocephalic and atraumatic Ears: hearing grossly normal bilaterally Face/Nose/Sinus: normal facial exam Face and sinus: normal facial exam Eyes: General: appearance normal, both eyes and all related structures Pupils: Equal, round and reactive pupils present EOM: EOMs intact bilaterally Neck: Neck: full ROM, no lymphadenopathy and no JVD Thyroid: thyroid normal Lymphatic: no lymphadenopathy noted Resp: Effort & Inspection: normal respiratory effort and able to speak in complete sentences Auscultation: clear to auscultation bilaterally Cardio: Jugular venous distension: no JVD Rate: regular rate Rhythm: regular rhythm Heart sounds: S1 normal heart sound present and S2 normal heart sound present : General: Yes deferred Skin: Rashes: no rashes Wounds: no wounds Neuro: General: patient oriented x3 and CN's II-XI intact bilaterally Cranial nerves: Yes CN's II-XII intact bilaterally and Yes Equal, round and reactive pupils present Cognition (Neuro): normal cognition Speech: normal speech Gait exam (Neuro): Normal gait present Motor exam (neuro): 5/5 motor strength present throughout Sensory Exam: No Sensory deficit (Neuro) Extrem: General: normal to inspection, full ROM, no joint enlargement and no pedal edema Psych: Affect: normal affect DS: Data Data Completed and Pending Labs on day of discharge: Labs from last 24 hours 07/15/23 05:59 WBC 7.1 RBC 5.16 Hgb 14.0 Hct 43.5 MCV 84.3 MCH 27.1 MCHC 32.2 RDW 14.8 H Plt Count 208 MPV 11.8 H Immature Gran % (Auto) 0.6 H Neut % (Auto) 53.6 Lymph % (Auto) 31.3 Swift % (Auto) 10.2 H Eos % (Auto) 3.9 Baso % (Auto) 0.4 Lymph # (Auto) 2.22 Swift # (Auto) 0.7 H Eos # (Auto) 0.3 Baso # (Auto) 0.0 Abs Immat Gran (auto) 0.04 H Absolute Neuts (auto) 3.8 Absolute Nucleated RBC 0.000 Nucleated RBC % 0.0 Sodium 136 L Potassium 3.9 Chloride 109 H Carbon Dioxide 23 Anion Gap 4 BUN 15 D Creatinine 1.20 Es
== END 2023-07-15 15:55 | disposition home or self-care (01) ==
LOC: ANHED 20:18 → ANH3MEDSUR 21:09
PROVIDERS: Internal Medicine; Nurse Practitioner Family; Admitting Provider Internal Medicine; Emergency Provider Emergency Medicine; PCP Physician Assistant; Visit Provider Internal Medicine
DX: R11.2 Nausea with vomiting, unspecified (principal); R19.7 Diarrhea, unspecified; N17.9 Acute kidney failure, unspecified; I48.91 Unspecified atrial fibrillation; I11.0 Hypertensive heart disease with heart failure; I50.9 Heart failure, unspecified; E03.9 Hypothyroidism, unspecified; Z79.01 Long term (current) use of anticoagulants; F17.210 Nicotine dependence, cigarettes, uncomplicated; Z79.899 Other long term (current) drug therapy; Z20.822 Contact with and (suspected) exposure to COVID-19
CPT/HCPCS: 36415; 71045; 76775; 80048; 80053; 80307; 81001; 83605; 83690; 85025; 87637; 96361; 96374; 96375; 99285; A9270; G0378; J2405; J7030